=== PATIENT | female | born 1980 | race Caucasian/White ===

== ENCOUNTER 2017-05-21 18:06 | Emergency (ER) | payer MEDICAID ==
--- NOTE | 2017-05-21 18:25 | EDM.PDOC ---
ED HPI GENERAL MEDICAL PROBLEM - General Chief Complaint: Skin Complaint Stated Complaint: PAIN/SWELLING RT HAND/WRIST Time Seen by Provider: 05/21/17 18:25 Source of Information: Reports: Patient History Limitations: Reports: No Limitations - History of Present Illness INITIAL COMMENTS - FREE TEXT/NARRATIVE: HISTORY AND PHYSICAL: History of present illness: [Patient comes to the emergency room complaining of some redness to her right hand. She woke up at 3 AM this morning and noticed some redness to the dorsum of her right hand extending to the distal aspect of her right forearm. Denies any injury or trauma. Suspects that she may have been bit by an insect though she does not recall this occurring. Pain is mild. She's taken some naproxen which has helped with any discomfort. No history of reactions to other insect bites in the past. She has no other complaints or concerns. No fever or chills, abdominal pain, nausea, vomiting.] Review of systems: As per history of present illness and below otherwise all systems reviewed and negative. Past medical history: As per history of present illness and as reviewed below otherwise noncontributory. Surgical history: As per history of present illness and as reviewed below otherwise noncontributory. Social history: No reported history of drug or alcohol abuse. Family history: As per history of present illness and as reviewed below otherwise noncontributory. Physical exam: HEENT: Atraumatic, normocephalic. Extremities: Erythematous, Pinpoint sized lesion to dorsum of left hand. Mild erythema extending to anterior distal forearm. Swelling is mild and limited to the dorsum of the right hand. Neurovascular, motor and sensory unremarkable. Neuro: Awake, alert, oriented. Impression: [Questionable insect bite] Plan: [Discussed with patient that her presentation appears consistent with an insect bite. Instructed patient to take antihistamine in the morning and Benadryl at bedtime. Continue naproxen or ibuprofen for inflammation and may apply ice packs as needed. Return precautions are discussed. Patients in agreement with today's plan all her questions are answered and concerns are addressed.] Definitive disposition and diagnosis as appropriate pending reevaluation and review of above. right hand Pain Score (Numeric/FACES): 5 - Related Data Allergies Allergy/AdvReac Type Severity Reaction Status Date / Time morphine Allergy Rash Verified 05/21/17 18:15 Home Meds: Home Meds Naproxen [Naprosyn] 1 tab PO BID 05/21/17 [History] Past Medical History HEENT History: Reports: None Cardiovascular History: Reports: None Respiratory History: Reports: Other (See Below) Other Respiratory History: h/o chest tube insertion Gastrointestinal History: Reports: None Genitourinary History: Reports: None CHIP PERSON History: Reports: Ectopic , Musculoskeletal History: Reports: None Neurological History: Reports: None Psychiatric History: Reports: None Endocrine/Metabolic History: Reports: None Hematologic History: Reports: None Immunologic History: Reports: None Oncologic (Cancer) History: Reports: None Dermatologic History: Reports: None - Infectious Disease History Infectious Disease History: Reports: None - Past Surgical History Head Surgeries/Procedures: Reports: None HEENT Surgical History: Reports: Tonsillectomy Social & Family History - Family History Family Medical History: Noncontributory - Tobacco Use Smoking Status *Q: Current Every Day Smoker Years of Tobacco use: 10 Packs/Tins Daily: 0.5 - Caffeine Use Caffeine Use: Reports: Energy Drinks, Soda - Recreational Drug Use Recreational Drug Use: No ED ROS GENERAL - Review of Systems Review Of Systems: ROS reveals no pertinent complaints other than HPI. ED EXAM, SKIN/RASH Exam: See Below Course - Vital Signs Last Recorded V/S: Last Vital Signs Temp 97.8 F 05/21/17 18:16 Pulse 79 05/21/17 18:16 Resp 16 05/21/17 18:16 BP 134/69 05/21/17 18:16 Pulse Ox 99 05/21/17 18:16 Departure - Departure Time of Disposition: 18:50 Disposition: Home, Self-Care 01 Condition: Good Clinical Impression: Bite - Discharge Information Instructions: Insect Bite, [id number] Referrals: Antonio Agarwal MD [Primary Care Provider] - Forms: ED Department Discharge Additional Instructions: The following information is given to patients seen in the emergency department who are being discharged to home. This information is to outline your options for follow-up care. We provide all patients seen in our emergency department with a follow-up referral. The need for follow-up, as well as the timing and circumstances, are variable depending upon the specifics of your emergency department visit. If you don't have a primary care physician on staff, we will provide you with a referral. We always advise you to contact your personal physician following an emergency department visit to inform them of the circumstance of the visit and for follow-up with them and/or the need for any referrals to a consulting specialist. The emergency department will also refer you to a specialist when appropriate. This referral assures that you have the opportunity for follow-up care with a specialist. All of these measure are taken in an effort to provide you with optimal care, which includes your follow-up. Under all circumstances we always encourage you to contact your private physician who remains a resource for coordinating your care. When calling for follow-up care, please make the office aware that this follow-up is from your recent emergency room visit. If for any reason you are refused follow-up, please contact the [facility] emergency department at and asked to speak to the emergency department charge nurse. [facility] [address] [place] [id number] Follow-up with primary care provider in 48 - 72 hours. Return to ER as needed as discussed.
== END 2017-05-21 18:56 | disposition home or self-care (01) ==
LOC: MW.ED 18:06
CPT/HCPCS: 99282; 99283

== ENCOUNTER 2018-02-09 13:46 | Emergency (ER) | payer SELFPAY ==
[2018-02-09 14:23] VITALS: BP 120/75
--- NOTE | 2018-02-09 15:26 | EDM.PDOC ---
ED HPI GENERAL MEDICAL PROBLEM - General Chief Complaint: Flank Pain Stated Complaint: SIDE PAIN Time Seen by Provider: 02/09/18 15:25 Source of Information: Reports: Patient - History of Present Illness INITIAL COMMENTS - FREE TEXT/NARRATIVE: HISTORY AND PHYSICAL: History of present illness: [Patient presents with left lower quadrant pain 4-5 out of 10 nonradiating since this morning no fever nausea vomiting chills sweats no chest pain shortness breath headache dizziness or palpitation no bowel or urine symptoms at current last bowel movement yesterday normal formed stool no blood or mucus Patient states earlier today she was nausea she has received Zofran in the emergency room this is resolved pain is currently 1 out of 10 and tolerable at time of discharge ] Patient is currently napping resting comfortably in no distress at time of discharge Review of systems: As per history of present illness and below otherwise all systems reviewed and negative. Past medical history: As per history of present illness and as reviewed below otherwise noncontributory. Surgical history: As per history of present illness and as reviewed below otherwise noncontributory. Social history: No reported history of drug or alcohol abuse. Family history: As per history of present illness and as reviewed below otherwise noncontributory. Physical exam: HEENT: Atraumatic, normocephalic, pupils reactive, negative for conjunctival pallor or scleral icterus, mucous membranes moist, throat clear, neck supple, nontender, trachea midline. Lungs: Clear to auscultation, breath sounds equal bilaterally, chest nontender. Heart: S1S2, regular, negative for clicks, rubs, or JVD. Abdomen: Soft, nondistendtender in the left lower quadrant on deep palpation no right lower quadrant tenderness no guarding or rebound tendernesstive for masses or hepatosplenomegaly. Negative for costovertebral tenderness. Pelvis: Stable nontender. Genitourinary: Deferred. Rectal: Deferred. Extremities: Atraumatic, negative for cords or calf pain. Neurovascular unremarkable. Neuro: Awake, alert, oriented. Cranial nerves II through XII unremarkable. Cerebellum unremarkable. Motor and sensory unremarkable throughout. Exam nonfocal. Diagnostics: [CBC CMP UA culture lipase troponin ]CT abdomen pelvis with contrast Therapeutics: [Normal saline 500 mL Toradol 30 mg IV Zofran 8 mg IV ] Cipro 500 by mouth twice a day #20 no refill Reglan 10 mg Jatin prescription for Reglan by mouth 3 times a day #30 no refill return if symptoms persist or worsen Impression: [Abdominal pain]--left lower quadrant Definitive disposition and diagnosis as appropriate pending reevaluation and review of above. Left Lower Abdomen Pain Score (Numeric/FACES): 8 - Related Data Allergies Allergy/AdvReac Type Severity Reaction Status Date / Time morphine Allergy Rash Verified 05/21/17 18:15 Past Medical History HEENT History: Reports: None Cardiovascular History: Reports: None Respiratory History: Reports: Other (See Below) Other Respiratory History: h/o chest tube insertion for 40% collapsed Right lung Gastrointestinal History: Reports: None Genitourinary History: Reports: None KNIFE CHANGER History: Reports: Ectopic , , Other (See Below) Other OB/BYN History: e-sure coils in bilateral fallopian tubes Musculoskeletal History: Reports: None Neurological History: Reports: None Psychiatric History: Reports: None Endocrine/Metabolic History: Reports: None Hematologic History: Reports: None Immunologic History: Reports: None Oncologic (Cancer) History: Reports: Cervix Dermatologic History: Reports: None - Infectious Disease History Infectious Disease History: Reports: None - Past Surgical History Head Surgeries/Procedures: Reports: None HEENT Surgical History: Reports: Tonsillectomy Social & Family History - Family History Family Medical History: Noncontributory - Tobacco Use Smoking Status *Q: Current Every Day Smoker Years of Tobacco use: 18 Packs/Tins Daily: 0.5 - Caffeine Use Caffeine Use: Reports: Energy Drinks - Recreational Drug Use Recreational Drug Use: No ED ROS GENERAL - Review of Systems Review Of Systems: ROS reveals no pertinent complaints other than HPI. ED EXAM, GENERAL - Physical Exam Exam: See Below Course - Vital Signs Last Recorded V/S: Last Vital Signs Temp 98.8 F 02/09/18 14:20 Pulse 106 H 02/09/18 14:20 Resp 16 02/09/18 14:20 BP 120/75 02/09/18 14:20 Pulse Ox 97 02/09/18 14:20 - Orders/Labs/Meds Orders: Active Orders 24 hr Category Date Time Status Abdomen Pelvis w Cont [CT] Stat Exams 02/09/18 15:25 Taken CULTURE URINE [RM] Stat Lab 02/09/18 14:47 Ordered HCG QUALITATIVE,URINE [URCHEM] Stat Lab 02/09/18 14:47 Ordered UA W/MICROSCOPIC [URIN] Stat Lab 02/09/18 14:47 Ordered Sodium Chloride 0.9% [Normal Saline] 500 ml Med 02/09/18 15:30 Active IV STAT Medication Orders Sodium Chloride (Normal Saline) 500 mls @ 999 mls/hr IV STAT SHAYLEE Last Admin: 02/09/18 15:32 Dose: 999 mls/hr Labs: Laboratory Tests 02/09/18 02/09/18 02/09/18 Range/Units 14:47 14:47 15:29 WBC 6.57 (4.0-11.0) K/uL RBC 4.17 L (4.30-5.90) M/uL Hgb 12.8 (12.0-16.0) g/dL Hct 37.7 (36.0-46.0) % MCV 90.4 (80.0-98.0) fL MCH 30.7 (27.0-32.0) pg MCHC 34.0 (31.0-37.0) g/dL RDW Std Deviation 47.3 (28.0-62.0) fl RDW Coeff of Wilbur 15 (11.0-15.0) % Plt Count 207 (150-400) K/uL MPV 10.40 (7.40-12.00) fL Neut % (Auto) 62.9 (48.0-80.0) % Lymph % (Auto) 23.4 (16.0-40.0) % [place] % (Auto) 8.1 (0.0-15.0) % Eos % (Auto) 4.7 (0.0-7.0) % Baso % (Auto) 0.9 (0.0-1.5) % Neut # (Auto) 4.1 (1.4-5.7) K/uL Lymph # (Auto) 1.5 (0.6-2.4) K/uL [place] # (Auto) 0.5 (0.0-0.8) K/uL Eos # (Auto) 0.3 (0.0-0.7) K/uL Baso # (Auto) 0.1 (0.0-0.1) K/uL Nucleated RBC % 0.0 /100WBC Nucleated RBCs # 0 K/uL Sodium (136-145) mmol/L Potassium (3.5-5.1) mmol/L Chloride (98-107) mmol/L Carbon Dioxide (21.0-32.0) mmol/L BUN (7.0-18.0) mg/dL Creatinine (0.6-1.0) mg/dL Est Cr Clr Drug Dosing mL/min Estimated GFR (MDRD) ml/min Glucose (74-106) mg/dL Calcium (8.5-10.1) mg/dL Total Bilirubin (0.2-1.0) mg/dL AST (15-37) IU/L ALT (14-63) IU/L Alkaline Phosphatase (46-116) U/L Troponin I (0.000-0.056) ng/mL Total Protein (6.4-8.2) g/dL Albumin (3.4-5.0) g/dL Globulin (2.0-3.5) g/dL Albumin/Globulin Ratio (1.3-2.8) Lipase (73-393) U/L Urine Color YELLOW Urine Appearance CLEAR Urine pH 7.0 (5.0-8.0) Ur Specific [place] 1.010 (1.001-1.035) Urine Protein NEGATIVE (NEGATIVE) mg/dL Urine Glucose (UA) NEGATIVE (NEGATIVE) mg/dL Urine Ketones NEGATIVE (NEGATIVE) mg/dL Urine Occult Blood NEGATIVE (NEGATIVE) Urine Nitrite NEGATIVE (NEGATIVE) Urine Bilirubin NEGATIVE (NEGATIVE) Urine Urobilinogen 1.0 (<2.0) EU/dL Ur Leukocyte Esterase NEGATIVE (NEGATIVE) Urine RBC 1-3 (0-2/HPF) Urine WBC 2-4 (0-5/HPF) Ur Epithelial Cells MODERATE (NONE-FEW) Urine Bacteria FEW (NEGATIVE) Urine HCG, Qual NEGATIVE (NEGATIVE) 02/09/18 Range/Units 15:29 WBC (4.0-11.0) K/uL RBC (4.30-5.90) M/uL Hgb (12.0-16.0) g/dL Hct (36.0-46.0) % MCV (80.0-98.0) fL MCH (27.0-32.0) pg MCHC (31.0-37.0) g/dL RDW Std Deviation (28.0-62.0) fl RDW Coeff of Wilbur (11.0-15.0) % Plt Count (150-400) K/uL MPV (7.40-12.00) fL Neut % (Auto) (48.0-80.0) % Lymph % (Auto) (16.0-40.0) % [place] % (Auto) (0.0-15.0) % Eos % (Auto) (0.0-7.0) % Baso % (Auto) (0.0-1.5) % Neut # (Auto) (1.4-5.7) K/uL Lymph # (Auto) (0.6-2.4) K/uL [place] # (Auto) (0.0-0.8) K/uL Eos # (Auto) (0.0-0.7) K/uL Baso # (Auto) (0.0-0.1) K/uL Nucleated RBC % /100WBC Nucleated RBCs # K/uL Sodium 142 (136-145) mmol/L Potassium 4.2 (3.5-5.1) mmol/L Chloride 109 H (98-107) mmol/L Carbon Dioxide 22.3 (21.0-32.0) mmol/L BUN 8 (7.0-18.0) mg/dL Creatinine 0.7 (0.6-1.0) mg/dL Est Cr Clr Drug Dosing 98.05 mL/min Estimated GFR (MDRD) > 60.0 ml/min Glucose 86 (74-106) mg/dL Calcium 8.9 (8.5-10.1) mg/dL Total Bilirubin 0.2 (0.2-1.0) mg/dL AST 21 (15-37) IU/L ALT 23 (14-63) IU/L Alkaline Phosphatase 50 (46-116) U/L Troponin I < 0.050 (0.000-0.056) ng/mL Total Protein 7.3 (6.4-8.2) g/dL Albumin 3.6 (3.4-5.0) g/dL Globulin 3.7 H (2.0-3.5) g/dL Albumin/Globulin Ratio 1.0 L (1.3-2.8) Lipase 190 (73-393) U/L Urine Color Urine Appearance Urine pH (5.0-8.0) Ur Specific [place] (1.001-1.035) Urine Protein (NEGATIVE) mg/dL Urine Glucose (UA) (NEGATIVE) mg/dL Urine Ketones (NEGATIVE) mg/dL Urine Occult Blood (NEGATIVE) Urine Nitrite (NEGATIVE) Urine Bilirubin (NEGATIVE) Urine Urobilinogen (<2.0) EU/dL Ur Leukocyte Esterase (NEGATIVE) Urine RBC (0-2/HPF) Urine WBC (0-5/HPF) Ur Epithelial Cells (NONE-FEW) Urine Bacteria (NEGATIVE) Urine HCG, Qual (NEGATIVE) Meds: Medications Generic Name Dose Route Start Last Admin Trade Name Freq PRN Reason Stop Dose Admin Sodium Chloride 500 mls @ 999 mls/hr 02/09/18 15:30 02/09/18 15:32 Normal Saline IV 999 mls/hr STAT SHAYLEE Administration Discontinued Medications Generic Name Dose Route Start Last Admin Trade Name Freq PRN Reason Stop Dose Admin Iopamidol 100 ml 02/09/18 17:58 02/09/18 17:58 Isovue Multipack-370 (76%) IVPUSH 02/09/18 17:59 100 ml ONETIME STA Administration Ketorolac Tromethamine 30 mg 02/09/18 15:22 02/09/18 15:32 Toradol IVPUSH 02/09/18 15:23 30 mg ONETIME ONE Administration Ondansetron HCl 8 mg 02/09/18 15:26 02/09/18 15:35 Zofran IVPUSH 02/09/18 15:27 8 mg ONETIME ONE Administration Departure - Departure Time of Disposition: 18:15 Disposition: Home, Self-Care 01 Condition: Good Clinical Impression: Abdominal pain - Discharge Information Referrals: Shane Martinez MD [Primary Care Provider] - Forms: ED Department Discharge Additional Instructions: Medication as prescribed Gas-X may benefit 3-4 times daily Return if symptoms persist or worsen or fever nausea vomiting chills sweats should they develop Follow-up with primary care in 2 weeks sooner as needed [facility] - [facility] [address] [place] [id number] The following information is given to patients seen in the emergency department who are being discharged to home. This information is to outline your options for follow-up care. We provide all patients seen in our emergency department with a follow-up referral. The need for follow-up, as well as the timing and circumstances, are variable depending upon the specifics of your emergency department visit. If you don't have a primary care physician on staff, we will provide you with a referral. We always advise you to contact your personal physician following an emergency department visit to inform them of the circumstance of the visit and for follow-up with them and/or the need for any referrals to a consulting specialist. The emergency department will also refer you to a specialist when appropriate. This referral assures that you have the opportunity for follow-up care with a specialist. All of these measure are taken in an effort to provide you with optimal care, which includes your follow-up. Under all circumstances we always encourage you to contact your private physician who remains a resource for coordinating your care. When calling for follow-up care, please make the office aware that this follow-up is from your recent emergency room visit. If for any reason you are refused follow-up, please contact the [facility] emergency department at and asked to speak to the emergency department charge nurse. - My Orders Last 24 Hours: My Active Orders 02/09/18 14:47 CULTURE URINE [RM] Stat HCG QUALITATIVE,URINE [URCHEM] Stat UA W/MICROSCOPIC [URIN] Stat 02/09/18 15:25 Abdomen Pelvis w Cont [CT] Stat 02/09/18 15:30 Sodium Chloride 0.9% [Normal Saline] 500 ml IV STAT - Assessment/Plan Last 24 Hours: My Active Orders 02/09/18 14:47 CULTURE URINE [RM] Stat HCG QUALITATIVE,URINE [URCHEM] Stat UA W/MICROSCOPIC [URIN] Stat 02/09/18 15:25 Abdomen Pelvis w Cont [CT] Stat 02/09/18 15:30 Sodium Chloride 0.9% [Normal Saline] 500 ml IV STAT
[2018-02-09] MEDS: Ketorolac 30 MG/ML SDV IVPUSH ONE (15:32)
[2018-02-09] MEDS: Sodium Chloride 0.9% 500 ML IV SCH (15:32)
[2018-02-09] MEDS: Ondansetron 4 MG/2 ML SDV IVPUSH ONE (15:35)
[2018-02-09 16:15] LABS: CHLORIDE,CL 109 mmol/L (98-107); SODIUM,NA 142 mmol/L (136-145)
[2018-02-09] MEDS: Iopamidol 755 MG/ML 500 ML Multipack Bottle IVPUSH STA (17:58)
[2018-02-09] MEDS: Metoclopramide 10 MG/2 ML SDV IV ONE (18:23)
--- NOTE | 2018-02-10 09:44 | CT ---
EXAM DATE: 02/09/18 PATIENT'S AGE: 37 Patient: PEDRO GRECO Facility: [place], [place] Site . Site : [id number] Study: CT Abdomen/Pelvis [id number]/11/2018 5:11:15 PM Ordering Physician: Carolina Miller Final Report: HISTORY: Abdomen pain. TECHNIQUE: The abdomen and pelvis were scanned using helical technique at 3 mm after 100 cc of Isovue-370. Sagittal and coronal reconstructions were performed. FINDINGS: Lung bases: No infiltrate. Liver and gallbladder: The liver parenchyma is homogeneous. No calcified gallstones. Spleen, pancreas and adrenal glands: Unremarkable. Kidneys and bladder: Symmetric nephrograms. No hydronephrosis. The bladder is incompletely distended. Retroperitoneum and lymph nodes: There is a few small foci of calcification wall of aorta. No aneurysm. No pathologic zo aortic lymphadenopathy. GI tract: The stomach is decompressed. There is some fluid seen in nondilated small bowel loops. The cecum is located deep within the anterior pelvis. The appendix is not identified. No inflammatory mass. Will wait and gas is seen throughout the colon. The distal descending and sigmoid colon are redundant. There is no free air in the abdomen. There is no free fluid the pelvis. Pelvic organs: Essure contraceptive devices are in place. There is a slightly irregular 2.2 cm cyst with a thin enhancing rim is seen within the right adnexa. This most likely represents a recently ruptured or resolving ovarian cyst. Abdominal wall: No ventral hernia is seen. Osseous structures: Bilateral L5 pars defects with trace anterior spondylolisthesis of L5 on S1. IMPRESSION: 1. The appendix is not identified. No inflammatory mass is seen the right lower quadrant. 2. 2.2 cm slightly irregular cyst with a thin enhancing rim seen within the right adnexa. This most likely represents a recently ruptured or resolving cyst. Dictated by Alexa Quigley MD @ 02/09/2018 5:45:32 PM Please note that all CT scans at this facility use dose modulation, iterative reconstruction, and/or weight-based dosing when appropriate to reduce radiation dose to as low as reasonably achievable. Dictated by: Alexa Quigley MD @ 02/09/2018 17:46:07 (Electronic Signature) Report Signed by Proxy. MTDD
== END 2018-02-09 18:47 | disposition home or self-care (01) ==
LOC: MW.ED 13:46
DX: R10.32 Left lower quadrant pain (principal); F17.210 Nicotine dependence, cigarettes, uncomplicated; Z88.5 Allergy status to narcotic agent
CPT/HCPCS: 36415; 74177; 80053; 81001; 81025; 83690; 84484; 85025; 87086; 96361; 96374; 96375; 99284; J1885; J2405; J2765; J7040; Q9967; 99283

== ENCOUNTER 2018-04-25 17:28 | Emergency (ER) | payer MEDICAID ==
--- NOTE | 2018-04-25 17:49 | EDM.PDOC ---
ED HPI GENERAL MEDICAL PROBLEM - General Chief Complaint: General Stated Complaint: WAS KICKED IN THE CHEST- SORE NOW Time Seen by Provider: 04/25/18 17:30 Source of Information: Reports: Patient History Limitations: Reports: No Limitations - History of Present Illness INITIAL COMMENTS - FREE TEXT/NARRATIVE: HISTORY AND PHYSICAL: History of present illness: Patient is a 37-year-old female who presents to the emergency room today with complaints of anterior chest wall pain after wrestling with her 7-year-old son last night. She states she had kneeled down while he was kicking and he connected with her sternal/right upper chest wall. She states that this " knocked the wind out of her" and since has had increased pain with coughing, deep breathing and engaging her chest muscles. He denies any loss of consciousness. Denies any fever, chills, cough, hemoptysis or shortness of breath. Denies any GI or symptoms. Review of systems: As per history of present illness and below otherwise all systems reviewed and negative. Past medical history: As per history of present illness and as reviewed below otherwise noncontributory. Surgical history: As per history of present illness and as reviewed below otherwise noncontributory. Social history: No reported history of drug or alcohol abuse. Family history: As per history of present illness and as reviewed below otherwise noncontributory. Physical exam: General: Well-developed and well-nourished 37-year-old female. Alert and oriented. Nontoxic appearing and in no acute distress. HEENT: Atraumatic, normocephalic, pupils equal and reactive bilaterally, negative for conjunctival pallor or scleral icterus, mucous membranes moist, throat clear, neck supple, nontender, trachea midline. No drooling or trismus noted. No meningeal signs Lungs: Clear to auscultation, breath sounds equal bilaterally, chest tender above the right breast near the sternum. Heart: S1S2, regular rate and rhythm without overt murmur Abdomen: Soft, nondistended, nontender. Negative for masses or hepatosplenomegaly. Negative for costovertebral tenderness. Pelvis: Stable nontender. Genitourinary: Deferred. Rectal: Deferred. Skin: Intact, warm, dry. No lesions or rashes noted. Extremities: Atraumatic, negative for cords or calf pain. Neurovascular unremarkable. Neuro: Awake, alert, oriented. Cranial nerves II through XII unremarkable. Cerebellum unremarkable. Motor and sensory unremarkable throughout. Exam nonfocal. Notes: There is no bruising or erythema noted to the area. She is tender with palpation. Sounds clear. Vital signs stable We'll obtain an x-ray for rule out of rib fractures. Patient is agreeable to receiving a chest x-ray. Chest x-ray shows no evidence of rib fractures, infiltrate or pneumonia. We'll prescribe diclofenac and tramadol. Supportive care measures were reviewed and discussed. She voices understanding and is agreeable to plan of care. She denies any further questions at this time. Diagnostics: Chest x-ray [employer]: [] Impression: Chest wall contusion Plan: 1. Rest and ice the painful area. Frequently take in deep breathes and cough. 2. Tylenol and/or ibuprofen as needed for pain management. Tramadol as needed for moderate to severe pain, reserve for nighttime use. This medication may cause drowsiness, so do not take while driving or needing to be functioning outside the house. 3. Follow-up with your primary care provider in the next 1-2 days. Return to the ED as needed and as discussed. Definitive disposition and diagnosis as appropriate pending reevaluation and review of above. Duration: Day(s): Location: Reports: Chest right chest Pain Score (Numeric/FACES): 10 - Related Data Allergies Allergy/AdvReac Type Severity Reaction Status Date / Time morphine Allergy Rash Verified 05/21/17 18:15 Home Meds: Home Meds . [No Known Home Meds] 02/09/18 [History] Past Medical History HEENT History: Reports: None Cardiovascular History: Reports: None Respiratory History: Reports: Other (See Below) Other Respiratory History: h/o chest tube insertion for 40% collapsed Right lung Gastrointestinal History: Reports: None Genitourinary History: Reports: None HELIARC WELDER History: Reports: Ectopic , , Other (See Below) Other OB/BYN History: e-sure coils in bilateral fallopian tubes Musculoskeletal History: Reports: None Neurological History: Reports: None Psychiatric History: Reports: None Endocrine/Metabolic History: Reports: None Hematologic History: Reports: None Immunologic History: Reports: None Oncologic (Cancer) History: Reports: Cervix Dermatologic History: Reports: None - Infectious Disease History Infectious Disease History: Reports: None - Past Surgical History Head Surgeries/Procedures: Reports: None HEENT Surgical History: Reports: Tonsillectomy Social & Family History - Family History Family Medical History: Noncontributory - Caffeine Use Caffeine Use: Reports: Energy Drinks ED ROS GENERAL - Review of Systems Review Of Systems: ROS reveals no pertinent complaints other than HPI. ED EXAM, GENERAL - Physical Exam Exam: See Below (See dictation) Course - Vital Signs Last Recorded V/S: Last Vital Signs Temp 97.6 F 04/25/18 17:39 Pulse 94 04/25/18 17:39 Resp 20 04/25/18 17:39 BP 138/79 04/25/18 17:39 Pulse Ox 98 04/25/18 17:39 - Orders/Labs/Meds Orders: Active Orders 24 hr Category Date Time Status Chest 2V [CR] Stat Exams 04/25/18 17:41 Taken Departure - Departure Time of Disposition: 18:13 Disposition: Home, Self-Care 01 Clinical Impression: Chest wall contusion Qualifiers: Encounter type: initial encounter Laterality: right Qualified Code(s): S20.211A - Contusion of right front wall of thorax, initial encounter - Discharge Information Instructions: Contusion, [id number] Referrals: Shane Martinez MD [Primary Care Provider] - Forms: ED Department Discharge Additional Instructions: The following information is given to patients seen in the emergency department who are being discharged to home. This information is to outline your options for follow-up care. We provide all patients seen in our emergency department with a follow-up referral. The need for follow-up, as well as the timing and circumstances, are variable depending upon the specifics of your emergency department visit. If you don't have a primary care physician on staff, we will provide you with a referral. We always advise you to contact your personal physician following an emergency department visit to inform them of the circumstance of the visit and for follow-up with them and/or the need for any referrals to a consulting specialist. The emergency department will also refer you to a specialist when appropriate. This referral assures that you have the opportunity for follow-up care with a specialist. All of these measure are taken in an effort to provide you with optimal care, which includes your follow-up. Under all circumstances we always encourage you to contact your private physician who remains a resource for coordinating your care. When calling for follow-up care, please make the office aware that this follow-up is from your recent emergency room visit. If for any reason you are refused follow-up, please contact the [facility] Emergency Department at and asked to speak to the emergency department charge nurse. [facility] [address] [place] [id number] 1. Rest and ice the painful area. Frequently take in deep breathes and cough. 2. Tylenol and/or ibuprofen as needed for pain management. Tramadol as needed for moderate to severe pain, reserve for nighttime use. This medication may cause drowsiness, so do not take while driving or needing to be functioning outside the house. 3. Follow-up with your primary care provider in the next 1-2 days. Return to the ED as needed and as discussed. - My Orders Last 24 Hours: My Active Orders 04/25/18 17:41 Chest 2V [CR] Stat - Assessment/Plan Last 24 Hours: My Active Orders 04/25/18 17:41 Chest 2V [CR] Stat
[2018-04-25 18:51] VITALS: BP 138/89
--- NOTE | 2018-04-26 10:47 | CR ---
EXAM DATE: 04/25/18 PATIENT'S AGE: 37 Patient: PEDRO GRECO Facility: [place], [place] Site . Site : 1980 Study: XRay Chest [id number]/25/2018 6:00:10 PM Ordering Physician: Doctor Blanchard Final Report: INDICATION: Sternal trauma. TECHNIQUE: PA and lateral views of the chest. COMPARISON: 01/05/2018. FINDINGS: The cardiac, mediastinal and hilar contours are within normal limits. Pulmonary vasculature is unremarkable. Lungs are clear. No pleural fluid or pneumothorax. No acute bony abnormality is identified. Specifically, no evidence of a displaced sternal fracture on the lateral view. IMPRESSION: No signs of an acute traumatic thoracic injury. Dictated by Joshua Driver MD @ 04/25/2018 6:23:29 PM Dictated by: Joshua Driver MD @ 04/25/2018 18:23:58 (Electronic Signature) Report Signed by Proxy. [facility]
== END 2018-04-25 18:38 | disposition home or self-care (01) ==
LOC: MW.ED 17:28
DX: S20.211A Contusion of right front wall of thorax, initial encounter (principal); Z88.5 Allergy status to narcotic agent; W50.0XXA Accidental hit or strike by another person, initial encounter; Y93.72 Activity, wrestling
CPT/HCPCS: 71046; 71046-26; 99283